=== PATIENT | male | born 1975 | race Caucasian/White ===

== ENCOUNTER 2018-07-03 07:45 | Day surgery (SDC) | payer OTHER, SELFPAY ==
[2018-07-03] VITALS (8 sets, daily range): BP systolic 123–138; BP diastolic 90–96; PULSE 66–90; RESP 16; TEMP 36.4–36.9; O2SAT 94–100; BMI 23.0
--- NOTE | 2018-07-03 | GALL_PTH ---
PATIENT: FIDE SHABAZZ [place] [facility] [place][id number] AGE/SX: 42/M ROOM: RE07/03/[address]: Dr. Remy Riddle MD : 1975 BED: DIS: 07/03/2018 SPEC #: [id number] RECD: 07/03/18 11:42 STATUS: PHILL REKatherine #: [id number] LYDIA: 07/03/18 00:[address]: Remy Riddle DEPT: SURGICAL PATHOLOGY RECD BY: Ernesto Rodríguez ENTERED: 07/04/18 06:53 SP TYPE: NOE ESCALANTE DR: Dr. Remy Kumari MD Tissues: Gallbladder, NOS Procedures: Surgery Specimen Level III HEADER OPERATION: Laparoscopic cholecystectomy PRE-OP DIAGNOSIS: Chronic cholecystitis, cholelithiasis TISSUE SUBMITTED: Gallbladder MICROSCOPIC DIAGNOSIS Gallbladder: Mild chronic cholecystitis. A pericystic lymph node with reactive changes. No stones are identified in the container or in the gallbladder. SJ:sunil 07/04/18 MICROSCOPIC DESCRIPTION Slides are reviewed. GROSS DESCRIPTION Received is one container labeled with the patient's name and designated gallbladder. The specimen consists of a gallbladder measuring 7 cm in length and up to 3 cm in diameter. The external surface is pink-grewal, smooth and glistening for the most part. Focally it is granular, hemorrhagic and contains cautery artifact. The gallbladder contains green-yellow mucoid bile. No stones are identified in the container or in the gallbladder. The mucosa is bile-stained and without any mass lesions. The gallbladder wall measures up to 0.2 cm in thickness. School Speech Language Pathologist sections from the gallbladder and the cystic duct are submitted in one cassette. / CESAR:sunil 07/03/18 TC:3 CPT: 00750
[2018-07-03] MEDS: Cefazolin 2 GM in 0.9% Normal Saline 100 ML IV (09:07)
--- NOTE | 2018-07-03 09:08 | DCINST_ITS ---
Discharge Diet: Light diet - advance as tolerated - if you have questions about your diet instructions, please talk to you doctor. Discharge Activity: May Not Drive - for 1 week or while taking narcotic pain medicine. May shower in (days): 1 Lifting Restrictions: 10 pounds Call your doctor if your incision/area has: Continuous Slow Oozing, Sudden Increased Bleeding, Increased Pain/ Swelling, Increased Redness, Foul Smelling Discharge Call your doctor if you observe: Fever of 101 or Higher Suture Line Care: Avoid Pulling/Pushing, Avoid Pinching/Bending Additional Dressing/Incision Instructions:: Change or remove dressing in 4 days. Leave steri-strips in place for 1 week. Allergies/Adverse Reactions: Allergies No Known Allergies Allergy (Unverified 07/02/18 08:49) Medications to take at Discharge gabapentin 300 mg capsule 300 mg PO DAILY 06/26/18 sulfamethoxazole 400 mg-trimethoprim 80 mg tablet 400 mg PO DAILY tab 06/26/18 Calcium Carb/Mag Ox/Zinc Sulf [Hnvxsdw-Fhpbwncag-Czic Tablet] 1 each PO BID 07/02/18 Multivitamin [Multiple Vitamins] 1 each PO DAILY 07/02/18 [place]-3 Fatty Acids/Fish Oil [Fish Oil 1,000 mg Capsule] 1 each PO BID 07/02/18 Ranitidine [Zantac] 150 mg PO BID 07/02/18 [place]'s Wort 300 mg PO DAILY 07/02/18 Vitamin B Complex/Folic Acid [Super B Maxi Complex Caplet] 0.4 mg PO DAILY Vitamin E 180 unit PO BID 07/02/18 Hydrocodone Bitart/Apap 5-325 [[place] 5MG-325MG] 1 tablet PO Q4H PRN PRN 3 Days #8 tablet 07/03/18 The following prescriptions were given: Hydrocodone Bitart/Apap 5-325 [[place] 5MG-325MG] 1 tablet PO Q4H PRN PRN 3 Days #8 tablet PRN Reason: Pain Orders to be completed after discharge: 12 Lead EKG [[facility]] Time Frame: 07/03/18, Location: None Selected Primary Care Physician: Remy Kumari MD [Primary Care Provider] - Test Results: Test results from this visit will be discussed in further detail at your follow- up appointment, if applicable. Please Follow Up With: Remy Riddle MD - [phone] When: Call to make an appointment to be seen in about 10 days.
--- NOTE | 2018-07-03 09:20 | RAD_ITS ---
STUDY: INTRAOPERATIVE CHOLANGIOGRAM. REASON FOR EXAM: Male, 42 years old. Laparoscopic cholecystectomy. FLUOROSCOPY TIME (if supplied): (0:20) minutes/seconds TECHNIQUE: An intraoperative cholangiogram was performed by the surgeon. Imaging was submitted. COMPARISON: None. FINDINGS: The common bile duct is unremarkable. No intraluminal filling defect is seen. There is free flow of contrast into the duodenum. RAD/Cholangiogram/ O R,Initial IMPRESSION: Unremarkable intraoperative cholangiogram. Electronically Signed: Stephen Rudolph MD at 12:18 EDT Tel [phone], Service support ,
[2018-07-03] MEDS: Bupivacaine 0.5% PF 10 ML VIAL (10:10)
--- NOTE | 2018-07-03 10:19 | OP.PCM_ITS ---
Problem List (1) Chronic cholecystitis with calculus Status: Acute (2) Umbilical hernia Status: Acute Qualifiers: Obstruction and gangrene presence: without obstruction or gangrene Qualified Code(s): K42.9 - Umbilical hernia without obstruction or gangrene Report of Operation Date of Procedure: 07/03/18 Pre-Operative Diagnosis: Biliary colic, chronic cholecystitis cholelithiasis Post-Operative Diagnosis: Biliary colic, chronic cholecystitis cholelithiasis, umbilical hernia Surgery/Procedure Performed:: Laparoscopic cholecystectomy with cholangiograms. Umbilical herniorrhaphy Description of Surgical Findings:: Timeout and informed consent was obtained. 42-year-old gent was taken out from placement table underwent general endotracheal intubation anesthesia. Ancef 2 g are given intravenously preoperatively. The abdomen sterilely prepped and draped. 0.5% Marcaine was used as local anesthetic. Throughout the procedure total 30 cc was used. Skin sites were pre-anesthetized. A vertical incision was made at the inferior portion of the umbilicus. Sharp blunt dissection id entified an umbilical hernia. The tissue was dissected free to reveal the defect. Holding sutures of 0 Vicryl placed. Varies needle inserted saline drop test performed the abdomen was insufflated with CO2 to a pressure of 10 mmHg pressure. Katherine trocar inserted. 10 lap scope inserted. No evidence any trocar injuries. Under direct visitation five-minute ports were placed in the epigastric and abdomen right upper quadrant. There was some adhesions of omentum to the gallbladder these were bluntly dissected free hemostasis was obtained with Hem-o-jayro clips. The infundibular area the gallbladder was completely dissected free. The cystic duct and cystic artery clearly identified. 2 Hem-o-jayro clips were placed on the cystic artery proximally 1 distally prior to transecting it. Cystic duct was dissected free Hem-o-jayro clip was placed on the cystic duct and incision made in the cystic duct and then a client Efren catheter was inserted. Fluoroscopically controlled claims grams were obtained demonstrating normal ductal anatomy. The cholangiogram catheter was removed 2 Hem-o-jayro clips were placed on the cystic duct stump prior to transecting it. The gallbladder was dissected free from the liver bed using electrocautery. Complete hemostasis was intact no spillage. The gallbladder was placed in retrieval bag and exited the umbilicus. Subhepatic area was carefully inspected noted to be intact. Trochars were removed under visualization. The abdomen was allowed to deflate of the CO2. The umbilical hernia was closed with an interrupted 0 Nurolon vojmlk-[id number]-arpjj suture. Skin edges proximate up to 4 Monocryl subdermal stitches. Steri-Strips Telfa and OpSite dressings applied. Sponge and instrument and needle counts were reported to the surgeon be correct. Specimens gallbladder. Drains none. Blood loss minimal. The patient was taken to the recovery area in satisfactory condition without apparent complication. Remy Riddle M.D., F.A.C.S. Type of Anesthesia:: General Anesthesiologist: Gisselle Rudolph
== END 2018-07-03 15:28 | disposition home or self-care (01) ==
LOC: SDC 07:45 → AC 07:49
PROVIDERS: Family Provider Family Medicine; PCP Family Medicine; Referring Provider Surgery; Visit Provider Surgery
PROC: (CPT 47610; principal; 2018-07-03 09:00)
DX: K80.10 Calculus of gallbladder with chronic cholecystitis without obstruction (principal); K42.9 Umbilical hernia without obstruction or gangrene; K21.9 Gastro-esophageal reflux disease without esophagitis; G25.81 Restless legs syndrome; Z79.899 Other long term (current) drug therapy; Z87.891 Personal history of nicotine dependence
CPT/HCPCS: 47563; 49585; 74300; 76000; 88304; J7120; A4216; J2405

== ENCOUNTER → 2024-05-05 | Outpatient (CLI) | payer OTHER, SELFPAY ==
[2024-05-05 18:03] LABS: Absolute Lymphocyte Count 0.73 X10^3/uL (0.83-4.51); Absolute Neutrophil Count 5.4 X10^3/uL (2.0-7.7); Basophil# 0.04 X10^3/uL; Basophil% 0.6 % (0-1); Eosinophil# 0.01 X10^3/uL; Eosinophils% 0.1 % (0-5); Hematocrit 44.9 % (40-54); Hemoglobin 15.6 g/dL (13.0-16.5); Lymphocyte # 0.73 X10^3/ul (0.83-4.51); Lymphocyte % 10.6 % (19-41); Mean Corp Hgb Conc 34.7 g/dL (32-36); Mean Corpuscular Hgb 34.8 pg (27.0-32.0); Mean Corpuscular Volume 100.2 fL (80-94); Mean Platelet Vol. 10.4 fl (6.2-12.0); Monocyte# 0.72 X10^3/uL; Monocyte% 10.4 % (0-10); NRBC Flagged by Analyzer 0 % (0-5); Neutrophil # 5.37 X10^3/uL (2.7-7.7); Neutrophil % 77.7 % (47-70); Platelet Count 209 K/mm3 (150-450); RBC Distribution Width CV 12.2 % (11.6-14.6); RBC Distribution Width SD 45.6 fl (35.1-43.9); Red Blood Count 4.48 M/mm3 (4.6-6.2); White Blood Count 6.9 K/mm3 (4.4-11.0)
[2024-05-05 20:30] LABS: ALB/GLOB Ratio 1.2 RATIO (0.9-2.4); AST(SGOT) 73 U/L (15-37); Alanine Aminotransfer ALT/SGPT 120 U/L (16-61); Albumin, Serum 4.1 g/dL (3.2-5.0); Alkaline Phosphatase 72 U/L (45-117); Anion Gap 9 (5-15); BUN 8 mg/dL (7-18); BUN/Creat Ratio 6.4 RATIO (10-20); Calcium,Total 9.5 mg/dL (8.5-10.1); Chloride 103 mmol/L (98-107); Creatinine, Serum 1.25 mg/dL (0.70-1.30); EST Glomerular Filtration Rate 65 mL/min (>60); Est Glom Filt Rate - Afr Amer 79 mL/min (>60); Globulin 3.4 g/dL (2.2-4.2); Glucose 80 mg/dL (74-106); Potassium 3.7 mmol/L (3.5-5.1); Protein, Total 7.5 g/dL (6.4-8.2); Sodium Level 138 mmol/L (136-145)
== END | disposition home or self-care (01) ==
PROVIDERS: PCP Family Medicine; Referring Provider Dermatology Pediatric Dermatology; Visit Provider Dermatology Pediatric Dermatology
DX: L70.0 Acne vulgaris (principal); L71.8 Other rosacea
CPT/HCPCS: 36415; 80053; 85025

== ENCOUNTER 2024-05-27 13:00 | Outpatient (CLI) | payer OTHER, SELFPAY ==
[2024-05-27 12:52] VITALS: BP 147/113; PULSE 100; RESP 16; TEMP 36.4; O2SAT 98; BMI 22.9
[2024-05-27] MEDS: Lactated Ringers 1,000 ML 15 ML IV (12:52)
--- NOTE | 2024-05-27 13:45 | NURSING ---
patient spoke with anesthesia and Dr. Ying about BP being elevated. This RN present for conversation with anesthesia telling patient his recommendation is to go to ER for evaluation. patient voiced understanding and made decision to follow up with primary care. significant other at bedside and also voiced understanding of situation.
[2024-05-27 13:50] VITALS: BP 162/123
== END 2024-05-27 23:00 | disposition home or self-care (01) ==
LOC: SDC 11-12 21:47
PROVIDERS: PCP Physician Assistant; Referring Provider Physician Assistant; Visit Provider Internal Medicine Gastroenterology
DX: Z00.00 Encounter for general adult medical examination without abnormal findings (principal)
CPT/HCPCS: J2405

== ENCOUNTER 2024-08-14 07:33 | Day surgery (SDC) | payer OTHER, SELFPAY ==
[2024-08-14] VITALS (7 sets, daily range): BP systolic 96–135; BP diastolic 71–97; PULSE 77–95; RESP 16; TEMP 36.2–36.3; O2SAT 94–100; BMI 23.7
--- NOTE | 2024-08-14 07:41 | PCM.PRE.AN2 ---
ASA Classification* ASA Classification ASA Classification: 2 Assessment & Plan Anesthesia* Anesthesia Assessment Anesthesia Assessment: Discussed sedation and/or anesthesia options, risks, benefits, and alternatives with patient/parents/legal guardian/POA. Questions invited. The patient/parents/legal guardian/POA seems to understand and agrees to proceed with anesthesia plan. Reviewed the physical assessment, medical history, allergy history and patient home medications list prior to surgery/procedure/anesthetic and documented any changes. Performed airway and anesthesia risk assessments. Anesthesia Type Anesthesia Type: MAC Anesthesia Focused Assessment* Airway Assessment Mouth opens: >3 cm Mallampati Score: II Focused Labs Anesthesia Preop lab: CBC WBC 6.9 K/mm3 (4.4-11.0) 05/05/24 17:06 RBC 4.48 M/mm3 (4.6-6.2) L 05/05/24 17:06 Hgb 15.6 g/dL (13.0-16.5) 05/05/24 17:06 Hct 44.9 % (40-54) 05/05/24 17:06 Plt Count 209 K/mm3 (150-450) 05/05/24 17:06 CHEMISTRY Potassium 3.7 mmol/L (3.5-5.1) 05/05/24 17:06 Sodium 138 mmol/L (136-145) 05/05/24 17:06 BUN 8 mg/dL (7-18) 05/05/24 17:06 Creatinine 1.25 mg/dL (0.70-1.30) 05/05/24 17:06 Glucose 80 mg/dL (74-106) 05/05/24 17:06 COAG Pre-Assessment Diagnosis/Proposed Procedure Planned Operative Procedure(s): COLONOSCOPY Anesthesia History Anesthesia History - sole edge inker machine: Anesthesia History - sole edge inker machine Hx Hospitalization No 08/11/24 12:20 Any Problems With Anesthesia Yes: NAUSEA 08/11/24 12:20 Cholinesterase deficiency No 08/11/24 12:20 You/Your Family Experience No 08/11/24 12:20 fever (hyperthermia) with Relationship Recent Exposure to Contagious No 05/27/24 12:52 Disease Does patient have nerve No 08/11/24 12:20 stimulator Patient instructed to have device shut off --Does patient have Pacemaker or ICD? When Was Last Pacemaker Check QUESTION #4 FULL TEXT: You/Your Family Experience fever (hyperthermia) with Anesthesia Last Oral Intake Last Oral intake: Last Oral Intake NPO since Meds taken in AM with sips of water? Meds patient instructed to take am of surgery PONV PONV - sole edge inker machine: PONV - sole edge inker machine Female No 08/11/24 12:20 HX of Motion Sickness No 08/11/24 12:20 HX of N/V After Surgery Yes 08/11/24 12:20 Non-Smoker Yes 08/11/24 12:20 Duration of Surgery greater No 08/11/24 12:20 than 60 minutes Number of Risk Factors 2 08/11/24 12:20 PONV Score Moderate Risk 08/11/24 12:20 Height & Weight Height & Weight: Anesthesia: Height & Weight Height 5 ft 9 in 07/08/24 09:29 Respiratory Assessment Respiratory Assessment - sole edge inker machine: Respiratory Tract Infection Hx - sole edge inker machine Hx Respiratory Tract Infection No 08/11/24 12:20 STOP Sleep Apnea STOP Sleep Apnea - sole edge inker machine: STOP Sleep Apnea - sole edge inker machine Hx Hypertension Yes 08/11/24 12:20 Hx Sleep Apnea No 08/11/24 12:20 CPAP BIPAP Do you snore loudly (louder No 08/11/24 12:20 than talking or can be heard Do you often feel tired/ No 08/11/24 12:20 fatigued/ sleepy during daytime? Has anyone observed you stop No 08/11/24 12:20 breathing during sleep? STOP Results Negative 08/11/24 12:20 QUESTION #5 FULL TEXT : Do you snore loudly (louder than talking or can be heard through closed doors)? Tobacco Use History Tobacco Use History - sole edge inker machine: Tobacco Use History - sole edge inker machine Tobacco Use Smoking Status Former smoker 08/11/24 12:20 Hx Tobacco Use No 08/11/24 12:20 Years Smoking Packs Smoked per Day Smoking Cessation Date was No - quit smoking greater 08/11/24 12:20 within the last 15 years than 15 years ago Hx Smoking Cessation Date Hx Smoking Cessation Counseling Hematologic Medial History Hematologic Hx - sole edge inker machine: Hematologic Medical Hx - psychiatric lpn Hx of Blood Transfusion No 08/11/24 12:20 Hx of Transfusion in last 3 No 08/11/24 12:20 Months Date of Last Transfusion (if within last 3 months) Ever experience any problems No 08/11/24 12:20 with transfusion(s)? Specify any problems Hx of Preganancy in last 3 N/A 08/11/24 12:20 Months Nurse Filling Out Transfusion [facility] 08/11/24 12:20 & Questions: Date: 08/11/24 08/11/24 12:20 Time: 12:26 08/11/24 12:20 Patient unable to answer at this time (ie. confused, unrespo /Reproduction History /Reproductive History - sole edge inker machine: /Reproductive Hx- sole edge inker machine Hx Now Gestational Age (in weeks): EDC: Hx Hx Para Hx Section SAB [facility] Medical History Alcohol use Heartburn Former smoker HTN (hypertension) Wears contact lenses Wears glasses Family history of colon cancer Personal history of colonic polyps Abdominal pain Barretts esophagus Chronic cholecystitis with calculus Cholelithiases RUQ pain Acne RLS (restless legs syndrome) Home Medications ?Medication ?Instructions ?Recorded ?Last Taken ?Type gabapentin 300 mg capsule 300 mg PO DAILY 06/26/18 Unknown History multivitamin 1 ea PO DAILY 07/02/18 Unknown History ranitidine HCl 150 mg tablet 150 mg PO BID 07/02/18 07/03/18 06:00 History vitamin E 100 unit capsule 180 unit PO DAILY 07/02/18 Unknown History lisinopril 5 mg tablet 5 mg PO QDAY 07/07/24 Unknown History sulfamethoxazole 400 400 mg PO DAILY 07/08/24 Unknown History mg-trimethoprim 80 mg tablet (Bactrim) Allergy/AdvReac Type Severity Reaction Status Date / Time No Known Allergies Allergy Verified 08/11/24 12:17 Family History Father CAD (coronary artery disease) Grandfather Colon cancer Dx younger than 60yrs Grandfather Colon cancer Dx in his 60's Surgical History Hx of colonoscopy Status post laparoscopic cholecystectomy s/p right leg surgery s/p broken left arm Social History household members: spouse current occupational status: employed current occupation: [employer] Smoking Status: Former smoker alcohol intake: current alcohol intake frequency: a few times a month substance use type: does not use Review of Systems (Anesthesia) ROS Narrative System reviewed and no additional complaints, except as documented.
--- NOTE | 2024-08-14 08:06 | PCM.HP.STD ---
HPI - General General Date of Admission: 08/14/24 Date of Service: 08/14/24 Chief Complaint: Personal history of polyps HPI Narrative FIDE SHABAZZ, is a 48 M who presents today for surveillance colonoscopy. He had a colonoscopy approximately 3 and half years ago and he had polyps that removed during that time. They turned out to be adenomatous polyps. He arrives here for surveillance. [facility] Medical History Alcohol use Heartburn Former smoker HTN (hypertension) Wears contact lenses Wears glasses Family history of colon cancer Personal history of colonic polyps Abdominal pain Barretts esophagus Chronic cholecystitis with calculus Cholelithiases RUQ pain Acne RLS (restless legs syndrome) Home Medications ?Medication ?Instructions ?Recorded ?Last Taken ?Type gabapentin 300 mg capsule 300 mg PO DAILY 06/26/18 Unknown History multivitamin 1 ea PO DAILY 07/02/18 Unknown History ranitidine HCl 150 mg tablet 150 mg PO BID 07/02/18 07/03/18 06:00 History vitamin E 100 unit capsule 180 unit PO DAILY 07/02/18 Unknown History lisinopril 5 mg tablet 5 mg PO QDAY 07/07/24 Unknown History sulfamethoxazole 400 400 mg PO DAILY 07/08/24 Unknown History mg-trimethoprim 80 mg tablet (Bactrim) Allergy/AdvReac Type Severity Reaction Status Date / Time No Known Allergies Allergy Verified 08/14/24 07:44 Family History Father CAD (coronary artery disease) Grandfather Colon cancer Dx younger than 60yrs Grandfather Colon cancer Dx in his 60's Surgical History Hx of colonoscopy Status post laparoscopic cholecystectomy s/p right leg surgery s/p broken left arm Social History household members: spouse current occupational status: employed current occupation: [employer] Smoking Status: Former smoker alcohol intake: current alcohol intake frequency: a few times a month substance use type: does not use ROS Review of Systems ROS Unobtainable: other Constitutional Constitutional: Denies fatigue, fever(s), poor appetite, weight gain or weight loss ENT HEENT: Denies mouth lesions Cardiovascular Cardiovascular: Denies abdominal bloating, abdominal edema or abdominal pain Respiratory/Chest Respiratory/Chest: Denies change in mental status, change in phlegm color, chest congestion or chest tightness Gastrointestinal Gastrointestinal: Denies belching, bloating, change in bowel habits, change in stool character, chewing difficulty, coffee ground emesis, constipation, cramping, diarrhea, dyspepsia, dysphagia, early satiety, excessive flatus, fecal incontinence, heartburn, hematemesis, hematochezia, hemorrhoids, loose stools, melena, nausea, odynophagia, rectal bleeding, tenesmus, vomiting or weight changes Genitourinary Genitourinary: Denies abdominal discomfort, burning urination or itching Musculoskeletal Musculoskeletal: Reports as per HPI; Denies muscle weakness or myalgias Integumentary Integumentary: Denies jaundice Neurologic Neurologic: Denies lack of coordination or weakness Psychiatric Psychiatric: Denies confusion, depression, memory loss, mood swings, paranoia or suicidal ideation Endocrine Endocrinology: Denies systems reviewed and no addt'l complaints, except as documented Hematologic/Lymphatic Hematologic/Lymphatic: Denies anemia, easy bleeding, easy bruising or lymphadenopathy Allergic/Immunologic Allergic/Immunologic: Denies systems reviewed and no addt'l complaints, except as documented Vital Signs Vital Signs Vital Signs: 08/14/24 07:44 08/14/24 07:44 Temperature 97.1 F L Temperature Source Temporal Pulse Rate 95 Respiratory Rate 16 Respiratory Pattern Normal Blood Pressure 135/97 H Blood Pressure Mean 109 Blood Pressure Source Monitor Blood Pressure Position Semi-Fowlers Blood Pressure Location Right Arm Pulse Ox 100 Oxygen Delivery Method Room Air Weight Weight: 160 lb 11.472 oz Body Mass Index (BMI) 23.7 Assessment & Plan Assessment/Plan (1) Encounter for screening for malignant neoplasm of colon: PLAN: He was explained alternatives, risk, benefits include not withstanding bleeding, infection, sepsis, perforation, need for more charge and . He will have an ASA of 3.
--- NOTE | 2024-08-14 08:30 | COLBX_PTH ---
PATIENT: FIDE SHABAZZ LOC: [place] U#:[id number] AGE/SX: 48/M ROOM: RE08/14/[address]: Dr. Everardo Ying DO : 1975 BED: DIS: 08/14/2024 SPEC #: [id number] RECD: 08/14/24 11:38 STATUS: PHILL TREV #: [id number] LYDIA: 08/14/24 08:[address]: Everardo Ying DEPT: SURGICAL PATHOLOGY RECD BY: Joie Awan ENTERED: 08/14/24 12:25 SP TYPE: COLON BX OTHR DR: CARLYN Villatoro Tissues: A - Cecum, NOS B - Sigmoid colon biopsy Procedures: Surgery Specimen Level IV HEADER OPERATION: Colonoscopy PRE-OP DIAGNOSIS: Encounter for screening for malignant neoplasm of colon TISSUE SUBMITTED: A- Cecum biopsy, B- Sigmoid polyp biopsy MICROSCOPIC DIAGNOSIS A. Cecum, biopsy: Fragments of hyperplastic polyp. B. Sigmoid colon polyp, biopsy: Hyperplastic polyp. AM. 08/15/2024 MICROSCOPIC DESCRIPTION Slides are reviewed. GROSS DESCRIPTION A. Received in fixative is one container labeled with the patient's name and designated Cecum biopsy. The specimen consists of multiple irregular fragments of light grewal soft tissue that in aggregate measure 1.0 x 0.3 x 0.1 cm. The specimen is totally submitted in one cassette. B. Received in fixative is one container labeled with the patient's name and designated Sigmoid polyp biopsy. The specimen consists of two irregular fragments of light grewal soft tissue that in aggregate measure 0.6 x 0.3 x 0.1 cm. The specimen is totally submitted in one cassette. AM. 08/14/2024 TC:5 CPT:70818d9
--- NOTE | 2024-08-14 09:03 | OP.COLON_ITS ---
Patient Name: Pablo Phan Procedure Date: 08/14/2024 8:36 AM Date of : 1975 Age: 48 Procedure: Colonoscopy Indications: High risk colon cancer surveillance: Personal history of colonic polyps Providers: Everardo Ying DO Referring MD: Oren Villatoro Medicines: Monitored Anesthesia Care Patient Profile: This is a 48 year old male. Refer to note in patient chart for documentation of history and physical. Last Colonoscopy: 3 years ago. Complications: No immediate complications. Procedure: Pre-Anesthesia Assessment: - Prior to the procedure, a History and Physical was performed, and patient medications and allergies were reviewed. The patient is competent. The risks and benefits of the procedure and the sedation options and risks were discussed with the patient. All questions were answered and informed consent was obtained. Patient identification and proposed procedure were verified by the physician in the pre-procedure area. Mental Status Examination: alert and oriented. Airway Examination: normal oropharyngeal airway and neck mobility. Respiratory Examination: clear to auscultation. CV Examination: normal. Prophylactic Antibiotics: The patient does not require prophylactic antibiotics. Prior Anticoagulants: The patient has taken no anticoagulant or antiplatelet agents except for NSAID medication. ASA Grade Assessment: II - A patient with mild systemic disease. After reviewing the risks and benefits, the patient was deemed in satisfactory condition to undergo the procedure. The anesthesia plan was to use monitored anesthesia care (MAC). Immediately prior to administration of medications, the patient was re-assessed for adequacy to receive sedatives. The heart rate, respiratory rate, oxygen saturations, blood pressure, adequacy of pulmonary ventilation, and response to care were monitored throughout the procedure. The physical status of the patient was re-assessed after the procedure. After I obtained informed consent, the scope was passed under direct vision. Throughout the procedure, the patient's blood pressure, pulse, and oxygen saturations were monitored continuously. The Colonoscope was introduced through the anus and advanced to the cecum, identified by appendiceal orifice and ileocecal valve. The colonoscopy was performed without difficulty. The patient tolerated the procedure well. The quality of the bowel preparation was adequate. The ileocecal valve, appendiceal orifice, and rectum were photographed. Scope In: 8:44:51 AM Scope Withdrawal Time 0 hours 9 minutes 34 seconds Scope Out: 8:56:16 AM Total Procedure Duration Time 0 hours 11 minutes 25 seconds Findings: The perianal and digital rectal examinations were normal. A 7 mm polyp was found in the cecum. The polyp was sessile. The polyp was removed with a hot snare. Resection and retrieval were complete. Verification of patient identification for the specimen was done. Estimated blood loss was minimal. A 5 mm polyp was found in the sigmoid colon. The polyp was sessile. The polyp was removed with a jumbo cold forceps. Resection and retrieval were complete. Verification of patient identification for the specimen was done. Estimated blood loss was minimal. Impression: - One 7 mm polyp in the cecum, removed with a hot snare. Resected and retrieved. - One 5 mm polyp in the sigmoid colon, removed with a jumbo cold forceps. Resected and retrieved. Recommendation: - Repeat colonoscopy in 3 years for surveillance. - Continue present medications. Procedure Code(s): --- Professional --- 54352, Colonoscopy, flexible; with removal of tumor(s), polyp(s), or other lesion(s) by snare technique 88527, 59, Colonoscopy, flexible; with biopsy, single or multiple CPT copyright 2021 [employer]. All rights reserved. The codes documented in this report are preliminary and upon associate veterinarian review may be revised to meet current compliance requirements. Everardo Ying DO 08/14/2024 9:03:00 AM This report has been signed electronically. Number of Addenda: 0 Note Initiated On: 08/14/2024 8:36 AM
--- NOTE | 2024-08-14 09:03 | OP.CCLET_ITS ---
08/14/2024 Oren Villatoro Re : Colonoscopy procedure for Pablo Phan Dear Emma This procedure was performed on August. My impressions and recommendations are as follows: Impressions : - One 7 mm polyp in the cecum, removed with a hot snare. Resected and retrieved. - One 5 mm polyp in the sigmoid colon, removed with a jumbo cold forceps. Resected and retrieved. Recommendations : - Repeat colonoscopy in 3 years for surveillance. - Continue present medications. My findings are described in the full procedure note, which is enclosed. If I can be of further assistance, please feel free to contact me at . Sincerely, Everardo Ying, 08/14/2024 9:03:00 AM This report has been signed electronically.
--- NOTE | 2024-08-14 09:05 | PCM.POST.ANE ---
Anesthesia: Postop Eval I Current Vital Signs Temperature: 97.3 F Pulse Rate: 87 Blood Pressure: 111/71 Respiratory Rate: 16 Pulse Ox: 97 Oxygen Delivery Method: Room Air Assessment Airway patent: Yes Spontaneous unlabored respirations: Yes Mental status: Asleep nausea: No Vomiting: No Anesthesia Complication: No Fluid Hydration Crystalloid volume administer (ml): 60 Total IV fluid infused: 60 Progress Note Anesthesia document: Postop Eval 1 completed: Yes
--- NOTE | 2024-08-15 07:45 | PCM.POSTANE2 ---
Anesthesia Postop Eval I Sum Postop Eval Completion status Anesthesia document: Postop Eval 1 completed: Yes Anesthesia Postop Eval I Summary Anesthesia Postop Eval I Summary: Anesthesia Postop Eval I: Assessment Summary Airway patent Yes 08/14/24 09:06 [email or web address] Spontaneous unlabored Yes 08/14/24 09:06 [email or web address] respirations Mental status Asleep 08/14/24 09:06 [email or web address] nausea No 08/14/24 09:06 [email or web address] Vomiting No 08/14/24 09:06 [email or web address] Anesthesia Postop Eval I: Fluid Summary Crystalloid volume administer 60 08/14/24 09:06 [email or web address] (ml) Colloids volume administered ( ml) Blood Product volume administered (ml) Total IV fluid infused 60 08/14/24 09:06 [email or web address] Anesthesia Postop Eval I: Summary Notes Anesthesia Complication No 08/14/24 09:06 [email or web address] Anesthesia Complication Comment: Post-operative progress note Anesthesia: Postop Eval II Evaluation Mental status: Awake Pain Level: 0 nausea: No Vomiting: No
== END 2024-08-14 09:35 | disposition home or self-care (01) ==
LOC: EN 07:33 → AC 07:34
PROVIDERS: PCP Physician Assistant; Referring Provider Physician Assistant; Visit Provider Internal Medicine Gastroenterology
PROC: 0DJD8ZZ Inspection of Lower Intestinal Tract, Via Natural or Artificial Opening Endoscopic (ICD-10-PCS; CPT 45378; principal; 2024-08-14 08:25)
DX: Z12.11 Encounter for screening for malignant neoplasm of colon (principal); K63.5 Polyp of colon; I10 Essential (primary) hypertension; Z80.0 Family history of malignant neoplasm of digestive organs; Z87.891 Personal history of nicotine dependence; Z86.0100 Personal history of colon polyps, unspecified; Z79.899 Other long term (current) drug therapy; Z90.49 Acquired absence of other specified parts of digestive tract; D12.0 Benign neoplasm of cecum
CPT/HCPCS: 45385; 45380; 88305; A4216; J2405

== ENCOUNTER → 2024-08-19 | Outpatient (CLI) | payer OTHER, SELFPAY ==
[2024-08-19 11:58] LABS: Erythrocyte Sedimentation Rate 1 mm/hr (0-20)
[2024-08-19 12:00] LABS: Platelet Count 224 K/mm3 (150-450); RET-HE 36.8 pg (30-35); Reticulocyte Count 1.37 % (0.5-1.5)
[2024-08-19 12:06] LABS: International Normalized Ratio 0.9; Prothrombin Time (Protime)PT. 12.1 SECONDS (11.7-14.9)
[2024-08-19 13:19] LABS: HIV - WCH Non-Reactive (Nonreactive)
[2024-08-19 13:32] LABS: CRP < 2.90 mg/L (0.0-3.0); Cholesterol 273 mg/dL (200); Ferritin 95 ng/mL (26-388); High Density Lipoprotein 75 mg/dL; Iron 70 ug/dL (65-175); Iron Binding Capacity,Total 340 ug/dL (250-450); LDH 163 U/L (87-241); Triglycerides 130 mg/dL; Very Low Density Lipoprotein 26 mg/dL (5-40)
[2024-08-25 09:23] LABS: Anti-Centromere B Ab <0.2 AI (0.0-0.9); Anti-Chromatin <0.2 AI (0.0-0.9); Anti-Jo <0.2 AI (0.0-0.9); Anti-Mitochondrial AB <20.0 Units (0.0-20.0); Anti-Scleroderma-70 AB <0.2 AI (0.0-0.9); Anti-dsDNA Ab 1 IU/mL (0-9); Beef <0.10 kU/L (Class 0); Chocolate <0.10 kU/L (Class 0); Codfish <0.10 kU/L (Class 0); Corn <0.10 kU/L (Class 0); Egg, Whole <0.10 kU/L (Class 0); Milk (Cow) <0.10 kU/L (Class 0); Mussels <0.10 kU/L (Class 0); Peanut <0.10 kU/L (Class 0); Pork <0.10 kU/L (Class 0); RNP Ab 0.7 AI (0.0-0.9); SJOGREN'S Anti-SS-A test < 0.2 AI (0.0-0.9); SJOGREN'S Anti-SS-B test < 0.2 AI (0.0-0.9); Salmon <0.10 kU/L (Class 0); Shrimp <0.10 kU/L (Class 0); Smith Ab <0.2 AI (0.0-0.9); Soybean <0.10 kU/L (Class 0); Tuna <0.10 kU/L (Class 0); Wheat <0.10 kU/L (Class 0)
[2024-08-25 14:07] LABS: ACCA 14 units (0-90); ALCA 66 units (0-60); AMCA 33 units (0-100); Albumin 4.4 g/dL (2.9-4.4); Alpha-1-Globulins 0.2 g/dL (0.0-0.4); Alpha-2-Globulins 0.7 g/dL (0.4-1.0); Angiotensin Convert Enzyme 35 U/L (14-82); Anti-Smooth Muscle ABS 5 Units (0-19); Ceruloplasmin 21.4 mg/dL (16.0-31.0); Copper, Serum or Plasma 81 ug/dL (69-132); Cytoplasmic Ab (C-ANCA) <1:20 titer (Neg:<1:20); Endomysial Antibody IgA Negative (Negative); Gamma Globulin 0.9 g/dL (0.4-1.8); HEPATITIS B SURFACE AG Negative (Negative); Hep C Antibodies Non Reactive (Non Reactive); Hepatitis A IgM Antibody Negative (Negative); Hepatitis B Core AB IgM Negative (Negative); IgG, Quant 927 mg/dL (603-1613); Immunoglobulin A 122 mg/dL (90-386); Immunoglobulin E 21 IU/mL (6-495); Immunoglobulin G, Subclass 1 470 mg/dL (248-810); Immunoglobulin G, Subclass 2 275 mg/dL (130-555); Immunoglobulin G, Subclass 3 36 mg/dL (15-102); Immunoglobulin G, Subclass 4 11 mg/dL (2-96); Immunoglobulin M 70 mg/dL (20-172); PROEL- TOTAL PROTEIN 7.2 g/dL (6.0-8.5); Perinuclear Ab (P-ANCA) <1:20 titer (Neg:<1:20); gASCA 24 units (0-50); t-Transglutaminase IgA <2 U/mL (0-3)
== END | disposition home or self-care (01) ==
PROVIDERS: PCP Physician Assistant; Referring Provider Internal Medicine Gastroenterology; Visit Provider Internal Medicine Gastroenterology
DX: R10.9 Unspecified abdominal pain (principal)
CPT/HCPCS: 36415; 80061; 80074; 82164; 82390; 82525; 82728; 82784; 82785; 82787; 83516; 83540; 83550; 83615; 84165; 84443; 85045; 85610; 85652; 86003; 86005; 86036; 86037; 86140; 86225; 86235; 86255; 86334; 86671; 86703

== ENCOUNTER → 2024-09-12 | Outpatient (CLI) | payer OTHER, SELFPAY ==
--- NOTE | 2024-09-12 09:25 | US_ITS ---
STUDY: ABDOMINAL ULTRASOUND - RIGHT UPPER QUADRANT; ELASTOGRAPHY REASON FOR VISIT: Male, 48 years old. Transaminitis. TECHNIQUE: Ultrasound evaluation of the right upper quadrant was performed with real-time and static willams-scale imaging. Point quantification shear wave elastography was performed ([employer]). TECHNICAL QUALITY: Adequate. COMPARISON: None. FINDINGS: Liver: The liver measures 15 cm. There is increased echogenicity consistent with fatty infiltration. The bile ducts are within normal limits. There is hepatic color flow. The direction of portal flow is hepatopetal. There is no demonstrated mass lesion. Median liver stiffness measured 6.6 kPa. Gallbladder: The patient is status post cholecystectomy. Common Bile Duct (C.B.D.): The common bile duct measures 2.8 mm. Pancreas: There is increased echogenicity of the pancreas. There is no demonstrated pancreatic mass or cyst. Right Kidney: Normal size of the right kidney. The right kidney measures 9.6 cm x 4.7 cm x 4.3 cm. Normal renal cortex. The right cortex measures 1.0 cm. There is no demonstrated renal mass or cyst. There is no right hydronephrosis. Questionable 4 mm x 4 mm x 3 mm calculus in the lower pole calyx of the right kidney US/ABD Limited w/ Elastography IMPRESSION: 1. Liver stiffness measures 6.6 kPa compatible with F2-F3 (Mild to moderate liver fibrosis) Metavir score. Electronically Signed: Stephen Rudolph MD at 10:49 EST ,
== END | disposition home or self-care (01) ==
PROVIDERS: PCP Physician Assistant; Referring Provider Internal Medicine Gastroenterology; Visit Provider Internal Medicine Gastroenterology
DX: R74.01 Elevation of levels of liver transaminase levels (principal)
CPT/HCPCS: 76705; 76981

== ENCOUNTER → 2024-10-02 | Outpatient (CLI) | payer OTHER, SELFPAY ==
--- NOTE | 2024-10-02 12:49 | MRI_ITS ---
STUDY: MR ENTEROGRAPHY WITH CONTRAST REASON FOR EXAM: Male, 48 years old. K50.90 - Crohn''s disease, unspecified, without complications TECHNIQUE: Multipulse sequence MRI performed with IV contrast according to standard MR enterography protocol following administration of oral contrast for maximal bowel distention. Images were obtained from the dome of the diaphragm to the symphysis pubis. IV 14ml clariscan was administered intravenously. TECHNICAL QUALITY: Image Quality: Satisfactory Small Bowel Distension: Adequate. COMPARISON: Elastography liver ultrasound. The ultrasound dated September 12, 2024. FINDINGS: FINDINGS: Bowel: Bowel wall thickening: Absent. Skip lesions: None. Vascularity: Normal. Enhancement: Normal. Fistula: None. Abscess: None. Other Findings: The visualized lung bases are unremarkable. The visualized portions of the heart are within normal limits. Normal liver. The patient is status post prior cholecystectomy. Normal spleen. Normal pancreas. Normal bilateral adrenal glands. Normal right kidney. Normal left kidney. Tiny cortical based posterior cyst of the midpole of the left kidney noted which does not requiring additional imaging or assessment. Normal visualized stomach. Normal small intestine. Normal colon. No bowel wall thickening or fistulas or abnormal effusions. No focal narrowing or stricturing or abnormal dilatation. No small bowel obstruction. No visualized bowel masses. No visualized colonic diverticula. No abnormal enhancement. Normal abdominal aorta. Normal inferior vena cava. Normal retroperitoneum. Normal urinary bladder. Normal abdominal wall. Normal osseous structures. MRI/Enterography Abd/Pel IMPRESSION: 1. Normal MR enterography. 2. No bowel wall thickening or fistulas or abnormal effusions. No focal narrowing or stricturing or abnormal dilatation. No small bowel obstruction. No visualized bowel masses. No visualized colonic diverticula. No abnormal enhancement. Electronically Signed: Oni Betancur MD at 13:02 [facility] ,
[2024-10-02 13:14] VITALS: BP 135/113; PULSE 83; RESP 16; O2SAT 97; BMI 22.8
[2024-10-02] MEDS: 0.9% Saline Lock 10 ML Syringe IV (14:28)
[2024-10-02] MEDS: Glucagon 1 MG/ML Syringe IV (14:28)
[2024-10-02 14:47] VITALS: BP 144/104; PULSE 83; RESP 16; O2SAT 95
== END | disposition home or self-care (01) ==
PROVIDERS: PCP Physician Assistant; Referring Provider Internal Medicine Gastroenterology; Visit Provider Internal Medicine Gastroenterology
DX: K50.90 Crohn's disease, unspecified, without complications (principal)
CPT/HCPCS: 74183; 96374; A9575; A4216; J1610